=== PATIENT | female | born 2000 | race Caucasian/White ===

== ENCOUNTER 2023-11-28 23:28 | Emergency (ER) | payer BC, OTHER ==
[~2023-11-28] VITALS: Ht 162.6 cm; Wt 63.5 kg
[2023-11-29] MEDS ORDERED: TDAP [DIPH/PERTUSSIS/TET] 0.5 ML VIAL IM ONE (01:37)
[2023-11-29] MEDS: TDAP [DIPH/PERTUSSIS/TET] 0.5 ML VIAL IM ONE (01:38)
[2023-11-29 01:52] VITALS: BP 119/70; TEMP 98.2; O2SAT 99
== END 2023-11-29 01:52 | disposition home or self-care (01) ==
LOC: ER 23:46
DX: S61.012A Laceration without foreign body of left thumb without damage to nail, initial encounter (principal); W26.8XXA Contact with other sharp object(s), not elsewhere classified, initial encounter; Y93.89 Activity, other specified; Y92.89 Other specified places as the place of occurrence of the external cause; Y99.8 Other external cause status
CPT/HCPCS: 90715